=== PATIENT | male | born 1965 | race African-American/Black ===

== ENCOUNTER 2019-09-06 13:26 | Emergency (ER) | payer OTHER ==
[2019-09-06 15:36] VITALS: BP 126/73
--- NOTE | 2019-09-06 16:09 | UC ---
Ear Complaint HPI - HPI Summary HPI Summary: Pt presents with c/o sudden onset of right ear pain that radiates down right side to shoulder. Pt denies injury, uri, RAY or dental symptoms - History of Current Complaint Chief Complaint: UCEar Stated Complaint: RT EAR PAIN Time Seen by Provider: 09/06/19 15:44 Hx Obtained From: Patient Onset/Duration: Sudden Onset, Still Present Severity Initially: Moderate Severity Currently: Moderate Pain Intensity: 8 - Allergies/Home Medications Allergies/Adverse Reactions: Allergies Allergy/AdvReac Type Severity Reaction Status Date / Time Penicillins AdvReac Unknown Verified 09/06/19 15:36 Reaction Details Home Medications: Home Medications predniSONE 20 mg TAB [Deltasone 20 MG TAB*] 20 mg PO DAILY #4 tab 09/06/19 [Rx] PMH/Surg Hx/FS Hx/Imm Hx Previously Healthy: Yes - Family History Known Family History: Positive: Cardiac Disease - Social History Occupation: Employed Full-time Lives: With Family Alcohol Use: Occasionally Substance Use Type: None Smoking Status (MU): Current Every Day Smoker Have You Smoked in the Last Year: Yes Review of Systems All Other Systems Reviewed And Are Negative: Yes Constitutional: Positive: Negative Skin: Positive: Negative Eyes: Positive: Negative ENT: Positive: Ear Ache - right side Respiratory: Positive: Negative Cardiovascular: Positive: Negative Gastrointestinal: Positive: Negative Genitourinary: Positive: Negative Motor: Positive: Negative Neurovascular: Positive: Negative Musculoskeletal: Positive: Myalgia - right side of neck Neurological/Mental Status: Positive: Negative Psychological: Positive: Negative Is Patient Immunocompromised?: No Physical Exam Triage Information Reviewed: Yes Appearance: Well-Appearing Vital Signs: Initial Vital Signs Temp 98.2 F 09/06/19 15:32 Pulse 61 09/06/19 15:32 Resp 16 09/06/19 15:32 BP 126/73 09/06/19 15:32 Pulse Ox 100 09/06/19 15:32 Vital Signs Reviewed: Yes Eye Exam: Normal ENT Exam: Normal Neck exam: Normal Respiratory Exam: Normal Cardiovascular Exam: Normal Musculoskeletal Exam: Normal Neurological Exam: Normal Psychological Exam: Normal Skin Exam: Normal Ear Complaint Course/Dx - Differential Dx/Diagnosis Differential Diagnosis/HQI/PQRI: Cerumen Impaction, Mastoiditis, Otitis Media, TMJ Syndrome, Trigeminal Nueralgia, URI Provider Diagnosis: Neck pain on right side Discharge ED - Sign-Out/Discharge Documenting (check all that apply): Patient Departure All imaging exams completed and their final reports reviewed: No Studies - Discharge Plan Condition: Stable Disposition: HOME Prescriptions: predniSONE 20 mg TAB [Deltasone 20 MG TAB*] 20 mg PO DAILY #4 tab Patient Education Materials: Earache (ED), Acute Neck Pain (ED) Referrals: Gutierrez NGUYEN,Amr [Primary Care Provider] - If Needed - Billing Disposition and Condition Condition: STABLE Disposition: Home
== END 2019-09-06 16:17 | disposition home or self-care (01) ==
LOC: UCCORT 13:26 → MERGE 13:26 → UCCORT 16:17
DX: M54.2 Cervicalgia (principal); M79.10 Myalgia, unspecified site; F17.200 Nicotine dependence, unspecified, uncomplicated; Z88.0 Allergy status to penicillin
CPT/HCPCS: 99201; G0463